=== PATIENT | male | born 1965 | race Caucasian/White ===

== ENCOUNTER → 2017-09-12 | Outpatient (REF) | LOC: ZLAB.WCH 18:03 | DX: Z01.89 Encounter for other specified special examinations (principal) ==

== ENCOUNTER → 2017-11-24 | Outpatient (REF) | LOC: ZLAB.WCH 16:52 | DX: Z01.89 Encounter for other specified special examinations (principal) ==

== ENCOUNTER → 2018-05-15 | Outpatient (REF) | LOC: ZLAB.WCH 08:41 | DX: Z01.89 Encounter for other specified special examinations (principal) ==

== ENCOUNTER → 2018-08-27 | Outpatient (REF) | LOC: ZLAB.WCH 16:24 | DX: Z01.89 Encounter for other specified special examinations (principal) ==

== ENCOUNTER 2020-07-21 14:52 | Inpatient (IN) | payer BC ==
[~2020-07-21] VITALS: Ht 167.6 cm; Wt 90.0 kg
[2020-07-21 15:20] LABS: BASO % 0.7 % (0.0-2.0); EOS # 0.1 (0.0-0.7); EOS % 2.1 % (0-4.0); GRAN # 3.3 (1.4-6.5); GRAN % 59.4 % (42.2-75.2); HEMOGLOBIN 10.5 g/dl (13.5-18.0); LYMPH # 1.5 (1.2-3.4); LYMPH % 26.9 % (20.0-51.0); MEAN CELL VOLUME 78 fl (80.0-100.0); MEAN CORPUSCULAR HEMOGLOBIN 25 pg (27.0-31.0); MEAN CORPUSCULAR HGB CONC 32 g/dl (33.0-37.0); MEAN PLATELET VOLUME 11.2 fl (7.4-10.4); MONO # 0.6 (0.1-0.6); MONO % 10.5 % (1.7-9.3); PLATELET COUNT 122 K/mm3 (130-400); RED BLOOD COUNT 4.22 M/mm3 (4.20-5.60); REDCELL DISTRIBUTION WIDTH-CV 14.5 % (11.5-14.5)
[2020-07-21 15:21] LABS: HEMATOCRIT 32.9 % (42.0-52.0)
[2020-07-21 15:25] LABS: ALANINE AMINOTRANSFERASE 31 U/L (4-49); ALBUMIN 4.3 gm/dL (3.5-5.0); ALKALINE PHOSPHATASE 66 U/L (50-136); ANION GAP 7 mmol/L (7-16); AST,SGOT 35 U/L (15-37); BILIRUBIN,TOTAL 1.2 mg/dL (0.0-1.0); BLOOD UREA NITROGEN 21 mg/dL (9-20); CALCIUM 8.5 mg/dL (8.4-10.2); CARBON DIOXIDE 28 mmol/L (22-30); CHLORIDE 103 mmol/L (98-107); CREATININE, serum 0.89 (0.66-1.25); GLUCOSE 122 mg/dL (74-106); POTASSIUM 3.8 mmol/L (3.4-5.0); SODIUM 138 mmol/L (137-145); TOTAL PROTEIN 7.5 gm/dL (6.4-8.2)
[2020-07-21] MEDS ORDERED: SYNTHROID0.05 MG/TA PO (15:45)
[2020-07-21] MEDS ORDERED: ACTIGALL 300MG300 MG PO (15:45)
[2020-07-21] MEDS ORDERED: XIFAXAN550 MG PO (15:47)
[2020-07-21] MEDS ORDERED: HCTZ 25MG TAB25 MG PO (15:47)
[2020-07-21] MEDS ORDERED: QUESTRAN4 GM/9 GM PO (15:48)
[2020-07-21] MEDS ORDERED: COZAAR 50MG50 MG/TAB PO (15:48)
[2020-07-21 15:49] LABS: TROPONIN-I < 0.012 ng/mL (0.000-0.035)
[2020-07-21] MEDS ORDERED: PROAIR HFA0.09 MG/AC IH (15:49)
[2020-07-21] MEDS ORDERED: PROTONIX 40MG T40 MG PO (15:49)
[2020-07-21 18:55] LABS: HEMATOCRIT 29.2 % (42.0-52.0); HEMOGLOBIN 9.5 g/dl (13.5-18.0)
[2020-07-21 18:58] LABS: INR 1.3 (0.8-3.0)
[2020-07-21 19:00] LABS: PARTIAL THROMBOPLASTIN TIME 24.8 SECONDS (26.0-37.0)
[2020-07-21 19:03] LABS: ALBUMIN 3.8 gm/dL (3.5-5.0); BILIRUBIN,TOTAL 1.2 mg/dL (0.0-1.0); CALCIUM 8.2 mg/dL (8.4-10.2); CREATININE, serum 0.89 (0.66-1.25); POTASSIUM 4.1 mmol/L (3.4-5.0); TOTAL PROTEIN 6.7 gm/dL (6.4-8.2)
[2020-07-21 23:35] LABS: HEMATOCRIT 26.4 % (42.0-52.0); HEMOGLOBIN 8.5 g/dl (13.5-18.0)
[2020-07-22] VITALS (9 sets, daily range): BP systolic 103–125; BP diastolic 66–86; PULSE 79–100; TEMP 97.7–98.4
[2020-07-22 04:09] LABS: HEMOGLOBIN 7.5 g/dl (13.5-18.0)
[2020-07-22 04:10] LABS: HEMATOCRIT 23.3 % (42.0-52.0)
[2020-07-22 09:53] LABS: BASO % 0.4 % (0.0-2.0); EOS # 0.1 (0.0-0.7); EOS % 1.8 % (0-4.0); GRAN # 1.4 (1.4-6.5); GRAN % 49.1 % (42.2-75.2); LYMPH % 35.6 % (20.0-51.0); MEAN CELL VOLUME 81 fl (80.0-100.0); MEAN CORPUSCULAR HGB CONC 32 g/dl (33.0-37.0); MEAN PLATELET VOLUME 11.6 fl (7.4-10.4); MONO # 0.4 (0.1-0.6); MONO % 12.7 % (1.7-9.3); PLATELET COUNT 86 K/mm3 (130-400); RED BLOOD COUNT 2.77 M/mm3 (4.20-5.60); REDCELL DISTRIBUTION WIDTH-CV 14.6 % (11.5-14.5)
[2020-07-22 10:27] LABS: HEMATOCRIT 22.5 % (42.0-52.0); HEMOGLOBIN 7.1 g/dl (13.5-18.0); MEAN CORPUSCULAR HEMOGLOBIN 26 pg (27.0-31.0)
[2020-07-22 11:22] LABS: HEMATOCRIT 22.7 % (42.0-52.0)
[2020-07-22 15:15] LABS: HEMATOCRIT 23.3 % (42.0-52.0); HEMOGLOBIN 7.2 g/dl (13.5-18.0)
[2020-07-22 19:49] LABS: HEMATOCRIT 22.3 % (42.0-52.0)
[2020-07-23] VITALS (13 sets, daily range): BP systolic 105–145; BP diastolic 49–74; PULSE 73–103; TEMP 98.2–98.9
[2020-07-23 01:53] LABS: HEMATOCRIT 21.8 % (42.0-52.0)
[2020-07-23 05:39] LABS: MEAN CELL VOLUME 82 fl (80.0-100.0); MEAN CORPUSCULAR HGB CONC 32 g/dl (33.0-37.0); MEAN PLATELET VOLUME 11.6 fl (7.4-10.4); PLATELET COUNT 87 K/mm3 (130-400); RED BLOOD COUNT 2.54 M/mm3 (4.20-5.60); REDCELL DISTRIBUTION WIDTH-CV 14.9 % (11.5-14.5)
[2020-07-23 05:42] LABS: HEMATOCRIT 20.7 % (42.0-52.0); HEMOGLOBIN 6.7 g/dl (13.5-18.0); MEAN CORPUSCULAR HEMOGLOBIN 26 pg (27.0-31.0)
[2020-07-23 05:48] LABS: CALCIUM 7.2 mg/dL (8.4-10.2); CREATININE, serum 0.88 (0.66-1.25); POTASSIUM 3.6 mmol/L (3.4-5.0)
--- NOTE | 2020-07-23 11:32 | NUR ---
SW met with patient to complete intake. Patient provides that he lives in [place] with his fipalomo Ortiz [phone] who he has appointed to be his DPOA-HC during this intake. Docement was completed, reviewed and witnessed signature with surgical nurse. Original documents placed in charts and copies provided to patient. Patient states that he does not utilize any DME, and he is independent with ADL's. His PCP is DR. Wilder of [place], pharmacy is [facility], and is able to afford his medications. Patient states that his plan is to go back home upon DC and is okay to do so. SW will continue to follow.
[2020-07-23 18:47] LABS: HEMATOCRIT 27.2 % (42.0-52.0); HEMOGLOBIN 8.7 g/dl (13.5-18.0)
--- NOTE | 2020-07-23 19:28 | NUR ---
Patient has done well throughout the day, complained of headach today, medication was given per orders. Continues having bloody stools per patient. Patient independent in room. Fluids infusing per orders. Patient was transfused 1 unit PRBCs today per orders. Denies further needs at this time. 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
--- NOTE | 2020-07-23 21:50 | NUR ---
Pt. up ambulating in the room. Pt. is A&OX3, assessment complete. Pt. took a shower. IV to lt. ac bleeding, discontinued site. New site started to lt. forearm, 20G, 2 attempts made. Pt. tolerated well. Pt. reports pain to abd. at a 6 on pain scale, will give pain meds per orders. Pt. denies further needs, call light within reach.
[2020-07-24] VITALS (12 sets, daily range): BP systolic 105–143; BP diastolic 52–93; PULSE 73–93; TEMP 97.4–98.9
[2020-07-24 05:45] LABS: BASO % 0.3 % (0.0-2.0); EOS % 1.4 % (0-4.0); GRAN # 1.6 (1.4-6.5); GRAN % 54.6 % (42.2-75.2); LYMPH # 0.9 (1.2-3.4); LYMPH % 30.6 % (20.0-51.0); MEAN CELL VOLUME 83 fl (80.0-100.0); MEAN CORPUSCULAR HGB CONC 32 g/dl (33.0-37.0); MEAN PLATELET VOLUME 11.1 fl (7.4-10.4); MONO # 0.4 (0.1-0.6); MONO % 12.8 % (1.7-9.3); PLATELET COUNT 74 K/mm3 (130-400); RED BLOOD COUNT 2.53 M/mm3 (4.20-5.60); REDCELL DISTRIBUTION WIDTH-CV 15.2 % (11.5-14.5)
[2020-07-24 05:54] LABS: HEMATOCRIT 21.1 % (42.0-52.0); MEAN CORPUSCULAR HEMOGLOBIN 27 pg (27.0-31.0)
[2020-07-24 05:56] LABS: HEMOGLOBIN 6.8 g/dl (13.5-18.0)
[2020-07-24 05:58] LABS: ALBUMIN 2.9 gm/dL (3.5-5.0); CALCIUM 7.4 mg/dL (8.4-10.2); CREATININE, serum 1.05 (0.66-1.25); POTASSIUM 3.6 mmol/L (3.4-5.0); TOTAL PROTEIN 5.4 gm/dL (6.4-8.2)
--- NOTE | 2020-07-24 08:00 | NUR ---
Patient in bed resting. Alert and oriented x 3. Assessment complete. Denies pain at this time. Fluids infusing per orders. Denies further needs at this time.
[2020-07-24 09:09] LABS: HEMATOCRIT 22.1 % (42.0-52.0); HEMOGLOBIN 7.2 g/dl (13.5-18.0)
[2020-07-24 13:14] LABS: HEMOGLOBIN 7.8 g/dl (13.5-18.0)
--- NOTE | 2020-07-24 19:13 | NUR ---
Patient has done well since EGD and colonoscopy, did have increased pain d/t banding. Medications were given per orders. Has been up independently in room. denies further needs at this time. WIll report off to awake overnight monitor.
[2020-07-24 19:16] LABS: HEMATOCRIT 24.4 % (42.0-52.0); HEMOGLOBIN 7.8 g/dl (13.5-18.0)
--- NOTE | 2020-07-24 20:30 | NUR ---
Pt. sitting up in bed at this time. Pt. is A&OX3, assessment complete. IV to lt. forearm patent, IV fluids infusing per orders. Pt. reports pain to throat at a 6 on pain scale, gave pain meds. Pt. denies further needs, call light within reach.
[2020-07-25 00:19] VITALS: BP 105/61; PULSE 79; TEMP 98.1
[2020-07-25 03:38] VITALS: BP 99/60; PULSE 77; TEMP 98
[2020-07-25 07:53] VITALS: BP 117/65; PULSE 84; TEMP 98.5
[2020-07-25 11:15] LABS: BASO % 0.3 % (0.0-2.0); EOS # 0.1 (0.0-0.7); EOS % 1.7 % (0-4.0); GRAN # 1.9 (1.4-6.5); GRAN % 62.2 % (42.2-75.2); LYMPH # 0.7 (1.2-3.4); LYMPH % 23.2 % (20.0-51.0); MEAN CELL VOLUME 83 fl (80.0-100.0); MEAN CORPUSCULAR HGB CONC 32 g/dl (33.0-37.0); MEAN PLATELET VOLUME 11.2 fl (7.4-10.4); MONO # 0.4 (0.1-0.6); MONO % 12.3 % (1.7-9.3); PLATELET COUNT 77 K/mm3 (130-400); REDCELL DISTRIBUTION WIDTH-CV 15.4 % (11.5-14.5)
[2020-07-25 11:23] LABS: HEMATOCRIT 23.2 % (42.0-52.0); HEMOGLOBIN 7.4 g/dl (13.5-18.0); MEAN CORPUSCULAR HEMOGLOBIN 26 pg (27.0-31.0)
[2020-07-25 12:44] VITALS: BP 133/72; PULSE 78; TEMP 98.3
[2020-07-25 14:46] VITALS: BP 122/73; PULSE 89; TEMP 98.9
[2020-07-25 19:14] VITALS: BP 116/64; PULSE 83; TEMP 99.3
[2020-07-25 20:29] LABS: HEMATOCRIT 24.3 % (42.0-52.0); HEMOGLOBIN 7.7 g/dl (13.5-18.0)
--- NOTE | 2020-07-25 21:45 | NUR ---
Pt. sitting up in bed at this time. Pt. is A&OX3, assessment compelte. IV to lt. forearm patent, IV fluids infusing per orders. Pt. reports pain at a 5 on pain, will give pain meds per orders. Pt. denies further needs.
[2020-07-26] VITALS (13 sets, daily range): BP systolic 90–140; BP diastolic 43–74; PULSE 68–85; TEMP 97.9–99.5
[2020-07-26 07:07] LABS: BASO % 0.4 % (0.0-2.0); EOS # 0.1 (0.0-0.7); EOS % 2.1 % (0-4.0); GRAN # 1.3 (1.4-6.5); GRAN % 53.3 % (42.2-75.2); LYMPH # 0.7 (1.2-3.4); LYMPH % 31.5 % (20.0-51.0); MEAN CELL VOLUME 84 fl (80.0-100.0); MEAN CORPUSCULAR HGB CONC 32 g/dl (33.0-37.0); MEAN PLATELET VOLUME 11.5 fl (7.4-10.4); MONO # 0.3 (0.1-0.6); MONO % 12.3 % (1.7-9.3); PLATELET COUNT 72 K/mm3 (130-400); RED BLOOD COUNT 2.61 M/mm3 (4.20-5.60); REDCELL DISTRIBUTION WIDTH-CV 15.4 % (11.5-14.5)
[2020-07-26 07:15] LABS: HEMATOCRIT 21.8 % (42.0-52.0); HEMOGLOBIN 6.9 g/dl (13.5-18.0); MEAN CORPUSCULAR HEMOGLOBIN 26 pg (27.0-31.0)
[2020-07-26 07:26] LABS: CALCIUM 7.5 mg/dL (8.4-10.2); CREATININE, serum 0.93 (0.66-1.25); POTASSIUM 3.4 mmol/L (3.4-5.0)
--- NOTE | 2020-07-26 10:15 | NUR ---
Patient alert and oriented, answers questions appropriately. See assessment. Abdomen soft, non tender, non distended. Bowel sounds active x4 quads. +Flatus. States no blood noted in stool. No c/o abdominal pain. No other c/o at this time.
--- NOTE | 2020-07-26 19:45 | NUR ---
Pt. sitting up in bed. Pt. is A&OX3, assessment complete. IV to lt. wrist patent. Pt. reports pain at a 4. Pt. would like a pain pill with evening meds. Will give per orders. Pt. denies further needs, call light within reach.
[2020-07-27 03:50] VITALS: BP 98/61; PULSE 65; TEMP 98.8
[2020-07-27 06:56] LABS: BASO % 0.4 % (0.0-2.0); EOS % 1.8 % (0-4.0); GRAN # 1.2 (1.4-6.5); GRAN % 50.8 % (42.2-75.2); LYMPH # 0.8 (1.2-3.4); LYMPH % 33.8 % (20.0-51.0); MEAN CELL VOLUME 83 fl (80.0-100.0); MEAN CORPUSCULAR HGB CONC 32 g/dl (33.0-37.0); MEAN PLATELET VOLUME 11.4 fl (7.4-10.4); MONO # 0.3 (0.1-0.6); MONO % 13.2 % (1.7-9.3); PLATELET COUNT 81 K/mm3 (130-400); RED BLOOD COUNT 2.96 M/mm3 (4.20-5.60); REDCELL DISTRIBUTION WIDTH-CV 15.9 % (11.5-14.5)
[2020-07-27 07:11] LABS: ALBUMIN 3.1 gm/dL (3.5-5.0); CALCIUM 7.7 mg/dL (8.4-10.2); CREATININE, serum 1.07 (0.66-1.25); POTASSIUM 3.5 mmol/L (3.4-5.0); TOTAL PROTEIN 5.8 gm/dL (6.4-8.2)
[2020-07-27 07:12] LABS: HEMATOCRIT 24.7 % (42.0-52.0); MEAN CORPUSCULAR HEMOGLOBIN 27 pg (27.0-31.0)
[2020-07-27 07:37] VITALS: BP 107/60; PULSE 77; TEMP 98.5
--- NOTE | 2020-07-27 08:00 | NUR ---
Patient resting in bed at this time. Patient rouses easily and is alert and oriented while awake. Patient denies pain or needs at this time, call light within reach.
--- NOTE | 2020-07-27 10:26 | NUR ---
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 No needs right now.
[2020-07-27 11:31] VITALS: BP 130/82; PULSE 80; TEMP 98.1
[2020-07-27] MEDS ORDERED: FERROUSAL325 MG PO (13:36)
--- NOTE | 2020-07-27 14:40 | NUR ---
Discharge teaching completed. Discussed follow up appointments, discharge medications, and discharge instructions. Patient verbalized understanding. Patient escorted to ED entrance where he entered a private vehicle.
== END 2020-07-27 14:45 | disposition home or self-care (01) | DRG 432 ==
LOC: COL.ER 14:52 → SURG 07-23 07:52
PROVIDERS: Internal Medicine; Internal Medicine Gastroenterology; Nurse Practitioner Family; Physician Assistant; Student in an Organized Health Care Education/Training Program; ADMIT Student in an Organized Health Care Education/Training Program
PROC: 0DJ08ZZ Inspection of Upper Intestinal Tract, Via Natural or Artificial Opening Endoscopic (ICD-10-PCS; 2020-07-22)
PROC: 06L34CZ Occlusion of Esophageal Vein with Extraluminal Device, Percutaneous Endoscopic Approach (ICD-10-PCS; principal; 2020-07-24 09:00)
PROC: 0DJD8ZZ Inspection of Lower Intestinal Tract, Via Natural or Artificial Opening Endoscopic (ICD-10-PCS; 2020-07-24 09:00)
DX: K74.60 Unspecified cirrhosis of liver (principal); I85.11 Secondary esophageal varices with bleeding; K83.01 Primary sclerosing cholangitis; K76.6 Portal hypertension; K29.30 Chronic superficial gastritis without bleeding; D50.0 Iron deficiency anemia secondary to blood loss (chronic); I10 Essential (primary) hypertension; E03.9 Hypothyroidism, unspecified; K21.9 Gastro-esophageal reflux disease without esophagitis; I95.9 Hypotension, unspecified; B19.20 Unspecified viral hepatitis C without hepatic coma; R51.9 Headache, unspecified; K31.89 Other diseases of stomach and duodenum; D69.6 Thrombocytopenia, unspecified; Z86.73 Personal history of transient ischemic attack (TIA), and cerebral infarction without residual deficits; Z87.891 Personal history of nicotine dependence; Z20.828 Contact with and (suspected) exposure to other viral communicable diseases
CPT/HCPCS: 99223-AI; 99232-AI; 99239; C9113; J0696; J1170; J1200; J2250; J2354; J2405; J2550; J2704; J2765; J7030; J7040; P9016; Q9967

== ENCOUNTER 2020-09-16 11:01 | Emergency (ER) | payer BC ==
[~2020-09-16] VITALS: Ht 167.6 cm; Wt 90.9 kg
[~2020-09-16 11:01] MED LIST: ACTIGALL 300MG300 MG PO; COZAAR 50MG50 MG/TAB PO; FERROUSAL325 MG PO; HCTZ 25MG TAB25 MG PO; PROAIR HFA0.09 MG/AC IH; PROTONIX 40MG T40 MG PO; QUESTRAN4 GM/9 GM PO; SYNTHROID0.05 MG/TA PO; XIFAXAN550 MG PO
[2020-09-16 11:18] VITALS: BP 141/86; TEMP 98.3
[2020-09-16 13:15] LABS: BASO % 0.7 % (0.0-2.0); EOS % 0.7 % (0-4.0); GRAN # 3.6 (1.4-6.5); GRAN % 62.8 % (42.2-75.2); HEMOGLOBIN 11.7 g/dl (13.5-18.0); LYMPH % 18.4 % (20.0-51.0); MEAN CELL VOLUME 78 fl (80.0-100.0); MEAN CORPUSCULAR HEMOGLOBIN 25 pg (27.0-31.0); MEAN CORPUSCULAR HGB CONC 32 g/dl (33.0-37.0); MEAN PLATELET VOLUME 11.1 fl (7.4-10.4); PLATELET COUNT 88 K/mm3 (130-400); RED BLOOD COUNT 4.65 M/mm3 (4.20-5.60); REDCELL DISTRIBUTION WIDTH-CV 15.9 % (11.5-14.5)
[2020-09-16 13:20] LABS: ALBUMIN 4.2 gm/dL (3.5-5.0); C-REACTIVE PROTEIN 0.9 mg/dL (0.0-0.9); CALCIUM 8.8 mg/dL (8.4-10.2); CREATININE, serum 0.78 (0.66-1.25); POTASSIUM 3.7 mmol/L (3.4-5.0)
[2020-09-16 13:37] LABS: HEMATOCRIT 36.3 % (42.0-52.0)
[2020-09-16] MEDS ORDERED: CIPRO 500MG TA500 MG PO (14:38)
[2020-09-16 15:08] VITALS: PULSE 97
== END 2020-09-16 15:09 | disposition home or self-care (01) ==
LOC: COL.ER 11:01
PROVIDERS: Emergency Medicine
DX: R50.9 Fever, unspecified (principal); Z96.89 Presence of other specified functional implants; E03.9 Hypothyroidism, unspecified; K21.9 Gastro-esophageal reflux disease without esophagitis; Z86.73 Personal history of transient ischemic attack (TIA), and cerebral infarction without residual deficits; Z79.890 Hormone replacement therapy
CPT/HCPCS: J0696